=== PATIENT | female | born 1935 | race Caucasian/White ===

== ENCOUNTER 2016-03-17 17:05 | Inpatient (IN) | payer OTHER, MEDICARE ==
[2016-03-17 17:08] VITALS: BP 154/73; PULSE 75; RESP 16; TEMP 98.7; O2SAT 96
[2016-03-17 18:05] LABS: MEAN CORPUSCULAR HGB CONC 29.2 % (32.0-36.0)
--- NOTE | 2016-03-17 18:12 | PD ---
HPI Chief Complaint: Abnormal Results Time Seen by Provider: 17:58 Travel History International Travel<30 days: No Contact w/Intl Traveler<30days: No Traveled to known affect area: No History of Present Illness HPI The patient is a 80-year-old female who presents to the emergency department for abnormal lab results. The patient states she had her yearly physical and had outpatient laboratory evaluation ordered. The patient had lab work performed at [facility]. and was told she had a hemoglobin of 6.1 and to present to the emergency department. The patient denies any shortness of breath , chest pain, exertional shortness of breath, lightheadedness, dizziness, fatigue, or malaise. However, the states the patient has been more tired than normal usually, however, the patient denies increased fatigue or lethargy. The patient denies any rectal bleeding, right red-colored stools, or dark colored stools. The patient denies taking any anticoagulants and denies any history of previous anemia. The patient's primary physician is Dr. Norwood. [facility] Past Medical History Narrative Medical Diabetes, hypertension, hypothyroidism Diabetes: Yes (GLIPIZIDE) ?: Not Past Surgical History Hysterectomy: Yes Social History Tobacco Use: No Allergies-Medications (Allergen,Severity, Reaction): Coded Allergies: No Known Allergies (Unverified , 03/17/16) Reported Meds & Prescriptions Reported Meds & Active Scripts Active Reported Levothyroxine (Levothyroxine Sodium) 100 Mcg Tab 100 Mcg PO DAILY Glipizide 5 Mg Tab 5 Mg PO DAILY Take 30 minutes before a meal Lisinopril 40 Mg Tab 40 Mg PO DAILY Review of Systems Except as stated in HPI: all other systems reviewed are Neg Eyes: No: Blurred Vision HENT: No: Headaches, Lightheadedness Cardiovascular: No: Chest Pain or Discomfort, Tachycardia, Syncope, Dyspnea on exertion Respiratory: No: Shortness of Breath Gastrointestinal: No: Nausea, Vomiting, Abdominal Pain, Hematemesis, Hematochezia, Changes in Bowel Habits Genitourinary: No: Hematuria Musculoskeletal: No: Weakness Neurologic: No: Weakness, Dizziness Physical Exam Narrative GENERAL: Awake, alert, pleasant 80-year-old female who appears her stated age and is in no acute respiratory distress. SKIN: Warm and dry. HEAD: Atraumatic. Normocephalic. EYES: Pupils equal and round. Mild pallor. ENT: No nasal bleeding or discharge. Mucous membranes pink and moist. NECK: Trachea midline. No JVD. CARDIOVASCULAR: Regular rate and rhythm. No murmur appreciated. RESPIRATORY: No accessory muscle use. Clear to auscultation. Breath sounds equal bilaterally. GASTROINTESTINAL: Abdomen soft, non-tender, nondistended. No rebound tenderness. Rectal: The exam was performed in the presence of a female nurse. No gross blood. Guaiac negative. MUSCULOSKELETAL: No obvious deformities. No clubbing. No cyanosis. No edema. NEUROLOGICAL: Awake and alert. No obvious cranial nerve deficits. Motor grossly within normal limits. Normal speech. PSYCHIATRIC: Appropriate mood and affect; insight and judgment normal. Data Data Last Documented VS Vital Signs Date Time Temp Pulse Resp B/P Pulse Ox O2 Delivery O2 Flow Rate FiO2 03/17/16 17:08 98.7 75 16 154/73 96 Room Air Orders Complete Blood Count With Diff (03/17/16 18:03) Comprehensive Metabolic Panel (03/17/16 18:03) Thyroid Stimulating Hormone (03/17/16 18:03) Free Thyroxine (T4) (03/17/16 18:03) Type And Screen (03/17/16 18:03) Iron/Tibc Profile (03/17/16 18:03) Retic Count (03/17/16 18:03) Ldh Serum (03/17/16 18:03) Red Blood Cells (Rbc) (03/17/16 18:52) Blood Product Administration .UPON TRANSFUSION (03/17/16 18:52) Sodium Chlor 0.9% 250 Ml Inj (Ns 250 Ml (03/17/16 19:00) Diphenhydramine Inj (Benadryl Inj) (03/17/16 19:00) Acetaminophen (Tylenol) (03/17/16 19:00) Admit Order (Ed Use Only) (03/17/16 19:41) Labs Laboratory Tests Test 03/17/16 18:23 White Blood Count 7.6 TH/MM3 Red Blood Count 3.64 MIL/MM3 Hemoglobin 6.2 GM/DL Hematocrit 21.3 % Mean Corpuscular Volume 58.6 FL Mean Corpuscular Hemoglobin 17.1 PG Mean Corpuscular Hemoglobin 29.2 % Concent Red Cell Distribution Width 19.4 % Platelet Count 326 TH/MM3 Mean Platelet Volume 9.1 FL Neutrophils (%) (Auto) 68.4 % Lymphocytes (%) (Auto) 22.6 % Monocytes (%) (Auto) 5.8 % Eosinophils (%) (Auto) 0.9 % Basophils (%) (Auto) 2.3 % Neutrophils # (Auto) 5.2 TH/MM3 Lymphocytes # (Auto) 1.7 TH/MM3 Monocytes # (Auto) 0.4 TH/MM3 Eosinophils # (Auto) 0.1 TH/MM3 Basophils # (Auto) 0.2 TH/MM3 CBC Comment AUTO DIFF Differential Comment AUTO DIFF CONFIRMED Platelet Estimate NORMAL Platelet Morphology Comment NORMAL Reticulocyte Count 1.6 % Absolute Reticulocyte Count 59.3 MIL/L Sodium Level 141 MEQ/L Potassium Level 4.0 MEQ/L Chloride Level 110 MEQ/L Carbon Dioxide Level 22.8 MEQ/L Anion Gap 8 MEQ/L Blood Urea Nitrogen 19 MG/DL Creatinine 1.25 MG/DL Estimat Glomerular Filtration 41 ML/MIN Rate Random Glucose 152 MG/DL Calcium Level 8.7 MG/DL Iron Level 6 MCG/DL Total Iron Binding Capacity 503 MCG/DL Percent Iron Saturation 1.2 % Total Bilirubin 0.5 MG/DL Aspartate Amino Transf 8 U/L (AST/SGOT) Alanine Aminotransferase 13 U/L (ALT/SGPT) Alkaline Phosphatase 69 U/L Lactate Dehydrogenase 173 U/L Total Protein 7.5 GM/DL Albumin 3.6 GM/DL Free Thyroxine 0.20 NG/DL Thyroid Stimulating Hormone 78.600 uIU/ML 3rd Gen Blood Type O POSITIVE Antibody Screen NEGATIVE MDM Medical Decision Making Medical Screen Exam Complete: Yes Emergency Medical Condition: Yes Medical Record Reviewed: Yes Interpretation(s) Laboratory Tests Test 03/17/16 18:23 White Blood Count 7.6 TH/MM3 Red Blood Count 3.64 MIL/MM3 Hemoglobin 6.2 GM/DL Hematocrit 21.3 % Mean Corpuscular Volume 58.6 FL Mean Corpuscular Hemoglobin 17.1 PG Mean Corpuscular Hemoglobin 29.2 % Concent Red Cell Distribution Width 19.4 % Platelet Count 326 TH/MM3 Mean Platelet Volume 9.1 FL Neutrophils (%) (Auto) 68.4 % Lymphocytes (%) (Auto) 22.6 % Monocytes (%) (Auto) 5.8 % Eosinophils (%) (Auto) 0.9 % Basophils (%) (Auto) 2.3 % Neutrophils # (Auto) 5.2 TH/MM3 Lymphocytes # (Auto) 1.7 TH/MM3 Monocytes # (Auto) 0.4 TH/MM3 Eosinophils # (Auto) 0.1 TH/MM3 Basophils # (Auto) 0.2 TH/MM3 CBC Comment AUTO DIFF Differential Comment AUTO DIFF CONFIRMED Platelet Estimate NORMAL Platelet Morphology Comment NORMAL Reticulocyte Count 1.6 % Absolute Reticulocyte Count 59.3 MIL/L Sodium Level 141 MEQ/L Potassium Level 4.0 MEQ/L Chloride Level 110 MEQ/L Carbon Dioxide Level 22.8 MEQ/L Anion Gap 8 MEQ/L Blood Urea Nitrogen 19 MG/DL Creatinine 1.25 MG/DL Estimat Glomerular Filtration 41 ML/MIN Rate Random Glucose 152 MG/DL Calcium Level 8.7 MG/DL Iron Level 6 MCG/DL Total Iron Binding Capacity 503 MCG/DL Percent Iron Saturation 1.2 % Total Bilirubin 0.5 MG/DL Aspartate Amino Transf 8 U/L (AST/SGOT) Alanine Aminotransferase 13 U/L (ALT/SGPT) Alkaline Phosphatase 69 U/L Lactate Dehydrogenase 173 U/L Total Protein 7.5 GM/DL Albumin 3.6 GM/DL Free Thyroxine 0.20 NG/DL Thyroid Stimulating Hormone 78.600 uIU/ML 3rd Gen Blood Type O POSITIVE Antibody Screen NEGATIVE Differential Diagnosis Differential diagnoses includes symptomatic anemia, hypothyroidism, iron deficiency anemia, microcytic anemia, GI bleed, normochromic anemia, macrocytic anemia. Narrative Course IV was established, labs are drawn and sent, and the patient was placed on cardiac telemetry monitoring and continuous pulse oximetry monitoring. A rectal exam was performed in the presence of a female nurse. Type and screen and CBC were sent to lab. Free T4, TSH, iron profile, retake, and LDH were sent to lab. Rectal exam was negative for gross blood, was guaiac negative. Lab called with critical values, hemoglobin 6.2 and hematocrit 21.3. The patient has no previous history of anemia and has little to no symptoms, states she is lethargic, however, patient denies. No obvious loss, rectal exam was negative and guaiac exam was negative. Anemia may be chronic and worsening over time. However, anemia is new with low at 6.2, therefore, patient will be admitted for transfusion of 2 units and further evaluation for etiology of anemia. H[facility]Prompt Point of Care Internal Pos. & Neg. Controls: Passed Fecal Specimen Occult Blood: Negative Physician Communication Physician Communication The [facility] [employer] I discussed the patient with Dr. Selby who agrees with admission. Diagnosis Primary Impression: Microcytic anemia Additional Impressions: Iron deficiency Hypothyroidism Qualified Code: E03.9 - Hypothyroidism, unspecified type Admitting Information Admitting Physician Requests: Admit Condition: Stable Gilmer Garcia MD Mar 17, 2016 18:12
[2016-03-17] MEDS ORDERED: LISI40TA PO (18:22)
[2016-03-17] MEDS ORDERED: GLIP5TAB8 PO (18:23)
[2016-03-17] MEDS ORDERED: LEVO100T5 PO (18:24)
[2016-03-17 18:36] LABS: AUTOMATED NEUTROPHIL # 5.2 TH/MM3 (1.8-7.7); BASOPHIL # 0.2 TH/MM3 (0-0.2); BASOPHIL % 2.3 % (0.0-2.0); EOSINOPHIL # 0.1 TH/MM3 (0-0.4); EOSINOPHIL % 0.9 % (0.0-4.0); HEMATOCRIT 21.3 % (35.0-46.0); LYMPH % 22.6 % (9.0-44.0); LYMPHOCYTE # 1.7 TH/MM3 (1.0-4.8); MEAN CELL VOLUME 58.6 FL (80.0-100.0); MEAN CORPUSCULAR HEMOGLOBIN 17.1 PG (27.0-34.0); MONO % 5.8 % (0.0-8.0); NEUT % 68.4 % (16.0-70.0); PLATELET COUNT 326 TH/MM3 (150-450); RED BLOOD COUNT 3.64 MIL/MM3 (4.00-5.30); RED CELL DISTRIBUTION WIDTH 19.4 % (11.6-17.2); RETIC % 1.6 % (0.4-3.0); WHITE BLOOD COUNT 7.6 TH/MM3 (4.0-11.0)
[2016-03-17 18:44] LABS: HEMO FLAGS AUTO DIFF; REVIEW FLAG AUTO DIFF
[2016-03-17 18:57] LABS: ANION GAP 8 MEQ/L (5-15); AST (GOT) 8 U/L (15-37); BICARBONATE 22.8 MEQ/L (21.0-32.0); BLOOD UREA NITROGEN 19 MG/DL (7-18); CHLORIDE 110 MEQ/L (98-107); GLOMERULAR FILTRATION RATE 41 ML/MIN (>89); SODIUM (NA) 141 MEQ/L (136-145)
[2016-03-17] MEDS ORDERED: diphenhydrAMINE HCL 50 MG/ML VIAL IV PRN (19:00)
[2016-03-17] MEDS ORDERED: SODIUM CHLOR 0.9% 250 ML INJ 250 ML IV ONE (19:00)
[2016-03-17 19:06] LABS: ALKALINE PHOSPHATASE 69 U/L (45-117); ALT (GPT) 13 U/L (10-53); LDH SERUM 173 U/L (84-246); TOTAL BILIRUBIN ADULT 0.5 MG/DL (0.2-1.0); TRANSFERRIN IRON PROFILE 359 MG/DL (200-360)
[2016-03-17 19:13] LABS: PLATELET ESTIMATE SMEAR NORMAL (NORMAL); PLATELET MORPHOLOGY NORMAL (NORMAL); SCAN/DIFF AUTO DIFF CONFIRMED
[2016-03-17] MEDS ORDERED: NALOXONE HCL 0.4 MG/ML AMP IV PRN (19:45)
[2016-03-17] MEDS ORDERED: SODIUM CHLORIDE 0.9% FLUSH 5 ML FLUSH FLUSH PRN (19:45)
[2016-03-17] MEDS: ACETAMINOPHEN 325 MG TAB PO PRN (19:49)
[2016-03-17 21:08] LABS: MEAN CORPUSCULAR HGB CONC 29.9 % (32.0-36.0)
[2016-03-17 21:21] VITALS: BP 148/71; PULSE 68; RESP 20; TEMP 98.1; O2SAT 95
[2016-03-17] MEDS ORDERED: GLUCAGON 1 MG/ML VIAL OTHER PRN (22:15)
[2016-03-17] MEDS ORDERED: DEXTROSE 50% IN WATER 50 ML VIAL(D50) IV PUSH PRN (22:15)
--- NOTE | 2016-03-17 22:30 | HHI.HP ---
cc: Abiola Norwood MD [facility] Service [facility] Primary Care Physician Abiola Norwood MD Admission Diagnosis Iron deficiency anemia, hypothyroidism Diagnoses: (1) Iron deficiency (2) Microcytic anemia (3) Hypothyroidism (4) Encephalopathy (5) Acute renal insufficiency Chief Complaint: Low hemoglobin on routine blood work Travel History International Travel<30 Days: No Contact w/Intl Traveler <30 Da: No Traveled to Known Affected Are: No History of Present Illness Mrs. Day is a 80 year-old female with a past medical history type 2 diabetes mellitus, hypothyroidism, and hypertension who had outpatient labwork for a yearly physical which revealed a hemoglobin of 6.1 resulting in her PCP referring her to the ER for evaluation. Rectal exam in ER negative for occult blood. In ER blood work revealed hemoglobin 6.2 and hematocrit 21.3. BP mildly elevated at 154/73, otherwise VSS. TSH elevated at 78.6. Free T4 low at 0.20. Acute renal insufficiency noted with BUN - 19, Creatinine - 1.25, and eGFR 41. Iron deficiency noted with Iron saturation 1.2%, TIBC elevated at 503, and iron level low at 6. The patient is seen in the CDU. She states that she is here because "I didn't take my medicine" and states it medicine for her thyroid that she's not been taking. She is educated about her low blood count and need for blood transfusion and then shortly thereafter again states that she is here because she didn't take her thyroid medicine. Her medical history is recalled with some accuracy. She states that she went out of town about 3 months ago and stopped her levothyroxine. She reports that she takes ibuprofen once a day for pain. She denies any history of taking blood thinners. She denies history of COPD, asthma, heart problems such as CHF, heart rhythm problems, DVT, PE, CVA, seizure, liver or kidney dysfunction, or cancer. She denies any bright red blood in stool, tarry stool, shortness of breath, dizziness, hematuria, hemoptysis. 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 She had a screening colonoscopy performed by Dr. Schaefer in 2002. . . Review of Systems Constitutional: DENIES: Fever, Dizziness Respiratory: DENIES: Hemoptysis, Shortness of breath Cardiovascular: DENIES: Dyspnea on Exertion, Lower Extremity Edema Gastrointestinal: DENIES: Black stools, Bloody stools Genitourinary: DENIES: Hematuria, Dysuria Other All other systems are reviewed and are otherwise negative Past Family Social History Past Medical History Type 2 diabetes mellitus Hypertension Hypothyroidism Rectal polyps x 3 1 snared, others fulgurated - per 10/10/2002 screening colonoscopy report (hyperplastic polyp per path report) . Past Surgical History Hysterectomy 08/01/04 FNA left thyroid nodule with path c/w nodular goiter per path report Colonoscopy with polypectomy x 3 1 snared, others fulgurated 10/10/02 . Reported Medications Reported Meds & Active Scripts Active Reported Levothyroxine (Levothyroxine Sodium) 100 Mcg Tab 100 Mcg PO DAILY - not taking x 3 months Glipizide 5 Mg Tab 5 Mg PO DAILY Take 30 minutes before a meal Lisinopril 40 Mg Tab 40 Mg PO DAILY . Allergies: Coded Allergies: No Known Allergies (Unverified , 03/17/16) Active Ordered Medications Current Medications Sodium Chloride (NS 250 ml Inj) 250 ml @ 15 mls/hr ONCE ONCE IV Last administered on 03/17/16 19:49; Start 03/17/16 at 19:00; Stop 03/18/16 at 11:39 Diphenhydramine HCl (Benadryl Inj) 25 mg UNSCH X1 PRN IV ITCHING Last administered on 03/17/16 19:49; Start 03/17/16 at 19:00; Stop 03/20/16 at 18:59 Acetaminophen (Tylenol) 650 mg UNSCH X1 PRN PO FEVER Last administered on 19:49; Start 03/17/16 at 19:00; Stop 03/20/16 at 18:59 IV Flush (NS Flush) 2 ml UNSCH PRN FLUSH FLUSH AFTER USING IV ACCESS; Start 03/17/16 at 19:45 IV Flush (NS Flush) 2 ml BID FLUSH ; Start 03/17/16 at 21:00 Naloxone HCl (Narcan Inj) 0.4 mg UNSCH PRN IV SEE LABEL COMMENTS; Start at 19:45 Levothyroxine Sodium (Synthroid) 100 mcg DAILY@06 PO ; Start 03/18/16 at 06:00 Lisinopril 40 mg 40 mg DAILY PO ; Start 03/18/16 at 09:00 Dextrose/Sodium Chloride (D5W-1/2 NS 1000 ml Inj) 1,000 ml @ 84 mls/hr [id number] IV ; Start 03/17/16 at 23:00 Dextrose (D50w (Vial) Inj) 25 ml UNSCH PRN IV PUSH HYPOGLYCEMIA-SEE COMMENTS; Start 03/17/16 at 22:15 Glucagon (Glucagon Inj) 1 mg UNSCH PRN OTHER HYPOGLYCEMIA-SEE COMMENTS; Start 03/17/16 at 22:15 . Family History Denies any significant family medical history - patient's confusion limits reliability of this information . Social History Alcohol: denies Tobacco: denies . Physical Exam Vital Signs Vital Signs Date Time Temp Pulse Resp B/P Pulse Ox O2 Delivery O2 Flow Rate FiO2 03/17/16 21:21 98.1 68 20 148/71 95 03/17/16 17:08 98.7 75 16 154/73 96 Room Air Physical Exam GENERAL: This is a frail appearing female patient who appears slightly jaundiced with dark circles underneath her eyes and who is in no apparent distress. She is confused to situation. SKIN: No rashes, ecchymoses or lesions. Cool and dry. HEAD: Atraumatic. Normocephalic. EYES: No scleral icterus. No injection or drainage. ENT: Nose without bleeding, purulent drainage. NECK: Trachea midline. No JVD or lymphadenopathy. CARDIOVASCULAR: Regular rate and rhythm without murmurs, gallops, or rubs. RESPIRATORY: Clear to auscultation. Breath sounds equal bilaterally. No wheezes , rales, or rhonchi. GASTROINTESTINAL: Abdomen soft, non-tender, nondistended. No guarding. MUSCULOSKELETAL: Extremities without clubbing, cyanosis, or edema. No calf tenderness. NEUROLOGICAL: Awake and alert. Normal speech. She is confused to situation. . Laboratory Laboratory Tests Test 03/17/16 03/17/16 18:23 19:33 White Blood Count 7.6 Red Blood Count 3.64 Hemoglobin 6.2 Hematocrit 21.3 Mean Corpuscular Volume 58.6 Mean Corpuscular Hemoglobin 17.1 Mean Corpuscular Hemoglobin 29.2 Concent Red Cell Distribution Width 19.4 Platelet Count 326 Mean Platelet Volume 9.1 Neutrophils (%) (Auto) 68.4 Lymphocytes (%) (Auto) 22.6 Monocytes (%) (Auto) 5.8 Eosinophils (%) (Auto) 0.9 Basophils (%) (Auto) 2.3 Neutrophils # (Auto) 5.2 Lymphocytes # (Auto) 1.7 Monocytes # (Auto) 0.4 Eosinophils # (Auto) 0.1 Basophils # (Auto) 0.2 CBC Comment AUTO DIFF Differential Comment AUTO DIFF CONFIRMED Platelet Estimate NORMAL Platelet Morphology Comment NORMAL Reticulocyte Count 1.6 Absolute Reticulocyte Count 59.3 Sodium Level 141 Potassium Level 4.0 Chloride Level 110 Carbon Dioxide Level 22.8 Anion Gap 8 Blood Urea Nitrogen 19 Creatinine 1.25 Estimat Glomerular Filtration 41 Rate Random Glucose 152 Calcium Level 8.7 Iron Level 6 Total Iron Binding Capacity 503 Percent Iron Saturation 1.2 Total Bilirubin 0.5 Aspartate Amino Transf 8 (AST/SGOT) Alanine Aminotransferase 13 (ALT/SGPT) Alkaline Phosphatase 69 Lactate Dehydrogenase 173 Total Protein 7.5 Albumin 3.6 Free Thyroxine 0.20 Thyroid Stimulating Hormone 78.600 3rd Gen Blood Type O POSITIVE Antibody Screen NEGATIVE Crossmatch Leukocyte-Reduced Red Blood Cells Blood Bank Comment Result Diagram: 03/17/16182203/17/161822 Assessment and Plan Problem List: (1) Iron deficiency ICD Code: E61.1 Status: Acute (2) Microcytic anemia ICD Code: D50.9 Status: Acute (3) Hypothyroidism ICD Code: E03.9 Status: Acute (4) Encephalopathy ICD Code: G93.40 Status: Acute (5) Acute renal insufficiency ICD Code: N28.9 Status: Acute Assessment and Plan Iron Deficiency Microcytic Anemia History of rectal polyps - Rectal exam: stool negative for occult blood in ER - Iron low at 6, Iron saturation low at 1.2%, and TIBC elevated at 503 - 2 units of PRBCs given in ER - recheck CBC in a.m. and transfuse as necessary - continuous cardiac telemetry to monitor for potential cardiac arrhythmias - vital signs q4h - consult GI - patient had [place] colon[place] [address] Yu per EMR Acute renal insufficiency - BUN - 19, Creatinine - 1.25, and eGFR 41 - Avoid nephrotoxins - recheck BMP in a.m. and follow trends in renal indices Hypothyroidism - continue home Synthroid - repeat thyroid labs in 2 weeks as an outpatient Encephalopathy - dementia vs severe anemia vs hypothyroid-related - monitor for improvement post-transfusion - will discuss baseline mental status with patient's when he arrives DVT prophylaxis - SCDs - Chemoprophylaxis contraindicated by severe anemia Written by Julianne Cuevas, acting as scribe for Dr. Selby on 03/17/16 at 21:40. The documentation accurately reflects the work performed [id number] by me on at 2140 Discussed Condition With Patient and ER physician Problem Qualifiers (1) Hypothyroidism: Qualified Code: E03.9 - Hypothyroidism, unspecified type Julianne Cuevas Mar 17, 2016 22:30 Toni Selby MD Mar 20, 2016 08:17
[2016-03-17] MEDS: SODIUM CHLORIDE 0.9% FLUSH 5 ML FLUSH FLUSH SCH (22:50)
[2016-03-17 23:00] VITALS: BP 148/71; PULSE 68; RESP 20; TEMP 98.1; O2SAT 95
[2016-03-17 23:20] VITALS: BP 141/69; PULSE 63; RESP 20; TEMP 98.5; O2SAT 100
[2016-03-18] VITALS (12 sets, daily range): BP systolic 129–166; BP diastolic 69–82; PULSE 62–77; RESP 16–20; TEMP 97.8–99; O2SAT 93–98
[2016-03-18] MEDS: ACETAMINOPHEN 325 MG TAB PO PRN (02:32)
[2016-03-18] MEDS: DEXT 5%-NACL 0.45% 1000 ML INJ 1,000 ML IV SCH ×3 (05:07→22:50)
[2016-03-18] MEDS: LEVOTHYROXINE SODIUM 100 MCG TAB PO SCH (05:09)
[2016-03-18 08:07] LABS: AUTOMATED NEUTROPHIL # 4.9 TH/MM3 (1.8-7.7); BASOPHIL # 0.2 TH/MM3 (0-0.2); BASOPHIL % 3.1 % (0.0-2.0); EOSINOPHIL # 0.1 TH/MM3 (0-0.4); EOSINOPHIL % 1.2 % (0.0-4.0); HEMATOCRIT 25.7 % (35.0-46.0); LYMPH % 20.2 % (9.0-44.0); LYMPHOCYTE # 1.5 TH/MM3 (1.0-4.8); MEAN CELL VOLUME 61.5 FL (80.0-100.0); MEAN CORPUSCULAR HEMOGLOBIN 18.4 PG (27.0-34.0); MONO % 6.5 % (0.0-8.0); PLATELET COUNT 287 TH/MM3 (150-450); RED BLOOD COUNT 4.18 MIL/MM3 (4.00-5.30); RED CELL DISTRIBUTION WIDTH 21.3 % (11.6-17.2); WHITE BLOOD COUNT 7.2 TH/MM3 (4.0-11.0)
[2016-03-18 08:14] LABS: HEMO FLAGS AUTO DIFF
[2016-03-18] MEDS: SODIUM CHLORIDE 0.9% FLUSH 5 ML FLUSH FLUSH SCH ×2 (08:21→22:49)
[2016-03-18] MEDS: LISINOPRIL 20 MG TAB PO SCH (08:22)
[2016-03-18 08:32] LABS: BICARBONATE 22.6 MEQ/L (21.0-32.0); POTASSIUM 3.9 MEQ/L (3.5-5.1)
[2016-03-18] MEDS ORDERED: cloNIDine HCL 0.1 MG TAB PO PRN (09:00)
[2016-03-18] MEDS ORDERED: hydrALAZINE HCL 20 MG/ML VIAL IV PRN (09:00)
[2016-03-18] MEDS: PANTOPRAZOLE SOD 40 MG DELAYED RELEASE TAB PO SCH (09:37)
[2016-03-18 09:44] LABS: KERATOCYTES OCC (NORMAL); OVALOCYTES 1+ (NORMAL); PLATELET ESTIMATE SMEAR NORMAL (NORMAL); PLATELET MORPHOLOGY NORMAL (NORMAL); SCAN/DIFF AUTO DIFF CONFIRMED
--- NOTE | 2016-03-18 09:46 | PD.CONS ---
HPI History of Present Illness This is a 80 year old female patient who was referred to the ER after outpatient labs revealed that she had anemia. She reports that she has been having an issue with anemia. She has not seen any blood loss. She denies any nausea, vomiting, heartburn, reflux, decreased appetite, weight loss, bowel changes, constipation, diarrhea, melena, or hematochezia. She denies any fatigue or generalized weakness. No vaginal bleeding. She came to the ER and was found to have anemia with H/H of 6.2/21.3. Iron level 6, TIBC 503, Iron saturation 1.2%. She was given 2 units of PRBC and her H/H is now 7.7/25.7. She had an EGD (10/18/2007) revealed nodule at the gastroesophageal junction, esophagitis, hiatal hernia, gastritis, pathology revealed GE mucosa with severe reflux esophagitis, no Muller's esophagus present. Colonoscopy (09/06/2007) revealed diverticula, scattered, small internal hemorrhoids. Follow-up 5 years for colonoscopy. Prior to this, she had hyperplastic polyps in the rectum. She denies any family hx of gastric, esophageal, or colorectal cancer. She denies the use of any blood thinners or NSAIDs. (Gisella Willis) PFSH Past Medical History Type 2 diabetes mellitus Hypertension Hypothyroidism Hyperplastic rectal polyps in 2002 Chronic kidney disease GERD Hyperlipidemia Osteoporosis Past Surgical History Hysterectomy FNA left thyroid nodule EGD Colonoscopy Radical mastectomy left breast (Gisella Willis) Coded Allergies: No Known Allergies (Unverified , 03/17/16) Medications Allergies Coded Allergies Type Severity Reaction Last Updated Verified No Known Allergies 03/17/16 No Active Scripts Medications Dose Route/Sig Days Date Category Dose Instructions Levothyroxine (Levothyroxine Sodium) 100 Mcg Tab 100 Mcg PO DAILY 03/17/16 Reported Glipizide 5 Mg Tab 5 Mg PO DAILY 03/17/16 Reported Take 30 minutes before a meal Lisinopril 40 Mg Tab 40 Mg PO DAILY 03/17/16 Reported Family History Family history of diabetes, pancreatic cancer, autoimmune disease Social History No tobacco or alcohol use (Gisella Willis) Review of Systems Constitutional: DENIES: Fatigue, Weight loss, Change in appetite Respiratory: DENIES: Cough Cardiovascular: DENIES: Chest pain Gastrointestinal: DENIES: Abdominal pain, Black stools, Bloody stools, Constipation, Diarrhea, Nausea, Vomiting, Anorexia, Swelling of Abdomen, Heartburn, Hematemesis Musculoskeletal: DENIES: Joint pain Integumentary: DENIES: Rash Hematologic/lymphatic: DENIES: Bruising Immunologic/allergic: DENIES: Eczema Neurologic: DENIES: Headache Psychiatric: DENIES: Confusion (Gisella Willis STEVEN) GI Exam Vitals I&O Vital Signs Date Time Temp Pulse Resp B/P Pulse Ox O2 Delivery O2 Flow Rate FiO2 03/18/16 07:50 97.9 70 16 166/79 95 03/18/16 05:03 98.6 74 20 148/74 93 03/18/16 04:38 98.2 76 20 129/82 96 03/18/16 03:01 99.0 71 20 137/69 93 03/18/16 02:00 98.3 77 20 137/69 93 03/18/16 00:15 97.9 76 20 144/71 98 03/18/16 00:00 67 03/17/16 23:20 98.5 63 20 141/69 100 03/17/16 23:00 98.1 68 20 148/71 95 03/17/16 21:21 98.1 68 20 148/71 95 03/17/16 17:08 98.7 75 16 154/73 96 Room Air I/O 03/17/16 03/17/16 03/17/16 03/18/16 03/18/16 03/18/16 07:00 15:00 23:00 07:00 15:00 23:00 Intake Total 700 ml Balance 700 ml Intake IV Total 100 ml Packed Cells 600 ml Laboratory Test 03/17/16 03/17/16 03/18/16 18:23 19:33 07:43 White Blood Count 7.6 TH/MM3 7.2 TH/MM3 Red Blood Count 3.64 MIL/MM3 4.18 MIL/MM3 Hemoglobin 6.2 GM/DL 7.7 GM/DL Hematocrit 21.3 % 25.7 % Mean Corpuscular Volume 58.6 FL 61.5 FL Mean Corpuscular Hemoglobin 17.1 PG 18.4 PG Mean Corpuscular Hemoglobin 29.2 % 29.9 % Concent Red Cell Distribution Width 19.4 % 21.3 % Platelet Count 326 TH/MM3 287 TH/MM3 Mean Platelet Volume 9.1 FL 9.1 FL Neutrophils (%) (Auto) 68.4 % 69.0 % Lymphocytes (%) (Auto) 22.6 % 20.2 % Monocytes (%) (Auto) 5.8 % 6.5 % Eosinophils (%) (Auto) 0.9 % 1.2 % Basophils (%) (Auto) 2.3 % 3.1 % Neutrophils # (Auto) 5.2 TH/MM3 4.9 TH/MM3 Lymphocytes # (Auto) 1.7 TH/MM3 1.5 TH/MM3 Monocytes # (Auto) 0.4 TH/MM3 0.5 TH/MM3 Eosinophils # (Auto) 0.1 TH/MM3 0.1 TH/MM3 Basophils # (Auto) 0.2 TH/MM3 0.2 TH/MM3 CBC Comment AUTO DIFF AUTO DIFF Differential Comment AUTO DIFF CONFIRMED Platelet Estimate NORMAL Platelet Morphology Comment NORMAL Reticulocyte Count 1.6 % Absolute Reticulocyte Count 59.3 MIL/L Sodium Level 141 MEQ/L 141 MEQ/L Potassium Level 4.0 MEQ/L 3.9 MEQ/L Chloride Level 110 MEQ/L 110 MEQ/L Carbon Dioxide Level 22.8 MEQ/L 22.6 MEQ/L Anion Gap 8 MEQ/L 8 MEQ/L Blood Urea Nitrogen 19 MG/DL 26 MG/DL Creatinine 1.25 MG/DL 1.22 MG/DL Estimat Glomerular Filtration 41 ML/MIN 43 ML/MIN Rate Random Glucose 152 MG/DL 149 MG/DL Calcium Level 8.7 MG/DL 8.1 MG/DL Iron Level 6 MCG/DL Total Iron Binding Capacity 503 MCG/DL Percent Iron Saturation 1.2 % Total Bilirubin 0.5 MG/DL Aspartate Amino Transf 8 U/L (AST/SGOT) Alanine Aminotransferase 13 U/L (ALT/SGPT) Alkaline Phosphatase 69 U/L Lactate Dehydrogenase 173 U/L Total Protein 7.5 GM/DL Albumin 3.6 GM/DL Free Thyroxine 0.20 NG/DL Thyroid Stimulating Hormone 78.600 uIU/ML 3rd Gen Blood Type O POSITIVE Antibody Screen NEGATIVE Crossmatch Leukocyte-Reduced Red Blood Cells Blood Bank Comment Physical Examination HEENT: Normocephalic; atraumatic; no jaundice. CHEST: CTA CARDIAC: RRR ABDOMEN: Soft, nondistended, nontender; no hepatosplenomegaly; bowel sounds are present in all four quadrants. EXTREMITIES: No clubbing, cyanosis, or edema. SKIN: Normal; no rash; no jaundice. POPULATION GENETICIST: No focal deficits; alert and oriented times three. (Gisella Willis) Assessment and Plan Plan ASSESSMENT: - EM. HH on admission 6.2/21.3. Iron level 6, TIBC 503, Iron saturation 1.2% . S/P 2 units of PRBC, H/H is now 7.7/25.7. No GI symptoms. EGD (10/18/2007) revealed nodule at the gastroesophageal junction, esophagitis, hiatal hernia, gastritis, pathology revealed GE mucosa with severe reflux esophagitis, no Muller's esophagus present. Colonoscopy (09/06/2007) revealed diverticula, scattered, small internal hemorrhoids. Follow-up 5 years for colonoscopy. Prior to this, she had hyperplastic polyps in the rectum. No family hx of gastric, esophageal, or colorectal cancer. She denies the use of any blood thinners or NSAIDs. Plan for egd/colonoscopy in am. - VANESSA. Creat 1.22. - Hypothryroidism with elevated TSH, low free T4. TSH 78.6. PLAN: - Plan for egd/colonoscopy in am - Obtain consents - Clear liquids - NPO after MN - Golytely prep - CBC, BMP in am - PPI - Supportive care - Further recommendations to follow based on results of above - Pt seen and examined by Dr. Meehan and myself and this note is written on his behalf (Gisella Willis) Physician Comments Patient seen and examined Agree with above Continue with current supportive care Monitor labs Plan for an EGD and a colonoscopy tomorrow (Rudy Meehan MD) Gisella Willis Mar 18, 2016 09:46 Rudy Meehan MD Mar 18, 2016 20:32
--- NOTE | 2016-03-18 10:04 | RADRPT ---
EXAM DATE/TIME: 03/18/2016 09:29 [facility] COMPARISON: No previous studies available for comparison. INDICATIONS : Altered mental status. RADIATION DOSE: 40.97 CTDIvol (mGy) MEDICAL HISTORY : Diabetes mellitus type 2. Hypothyroidism. SURGICAL HISTORY : Hysterectomy. ENCOUNTER: Initial ACUITY: 1 day PAIN SCALE: 0/10 LOCATION: cranial TECHNIQUE: Multiple contiguous axial images were obtained of the head. Using automated exposure control and adj ustment of the mA and/or kV according to patient size, radiation dose was kept as low as reasonably a chievable to obtain optimal diagnostic quality images. FINDINGS: CEREBRUM: The ventricles are normal for age. No evidence of midline shift, mass lesion, hemorrhage or acute in farction. No extra-axial fluid collections are seen. POSTERIOR FOSSA: The cerebellum and brainstem are intact. The 4th ventricle is midline. The cerebellopontine angle i s unremarkable. EXTRACRANIAL: The visualized portion of the orbits is intact. SKULL: The calvaria is intact. No evidence of skull fracture. CONCLUSION: Normal examination for a patient of this age. Loraine Blunt MD on March 18, 2016 at 9:59 Board Certified Radiologist. This report was verified electronically.
[2016-03-18 11:30] LABS: FERRITIN 11 NG/ML (8-252)
[2016-03-18 12:01] LABS: RAPID PLASMA REAGIN SCREEN NON-REACTIVE (NON-REACTVE)
--- NOTE | 2016-03-18 12:26 | HHI.PR ---
Subjective Remarks Follow up for anemia and questionable encephalopathy. The patient is awake, alert, oriented to person, place, and Mar 2016. When asked why she is in the hospital, she states "I came to get some blood." She is s/p 2u pRBCs. The patient denies any recent nausea/vomiting, abdominal pain, melena/hematochezia, weight loss, or poor appetite. She denies feeling confused or drowsy yesterday. Denies any family hx of dementia. She denies any other medical complaints at this time. Objective Vitals Vital Signs Date Time Temp Pulse Resp B/P Pulse Ox O2 Delivery O2 Flow Rate FiO2 03/18/16 07:50 97.9 70 16 166/79 95 03/18/16 05:03 98.6 74 20 148/74 93 03/18/16 04:38 98.2 76 20 129/82 96 03/18/16 03:01 99.0 71 20 137/69 93 03/18/16 02:00 98.3 77 20 137/69 93 03/18/16 00:15 97.9 76 20 144/71 98 03/18/16 00:00 67 03/17/16 23:20 98.5 63 20 141/69 100 03/17/16 23:00 98.1 68 20 148/71 95 03/17/16 21:21 98.1 68 20 148/71 95 03/17/16 17:08 98.7 75 16 154/73 96 Room Air I/O 03/17/16 03/17/16 03/17/16 03/18/16 03/18/16 03/18/16 07:00 15:00 23:00 07:00 15:00 23:00 Intake Total 700 ml Balance 700 ml Intake IV Total 100 ml Packed Cells 600 ml Result Diagram: 03/18/16 0743 03/18/16 0743 Imaging Last Impressions Head CT 03/18/16 0000 Signed Impressions: Service Date/Time: Friday, March 18, 2016 09:29 - CONCLUSION: Normal examination for a patient of this age. Loraine Blunt MD Objective Remarks GENERAL: Well-nourished, well-developed elderly female patient in NAD. Sitting upright on side of bed, awake, alert. SKIN: Warm and dry. No rash. HEAD: Normocephalic. Atraumatic. EYES: Pupils equal and round. No scleral icterus. No injection or drainage. ENT: No nasal bleeding or discharge. Mucous membranes pink and moist. NECK: Supple. Trachea midline. CARDIOVASCULAR: Regular rate and rhythm. S1, S2 noted. No murmur appreciated. RESPIRATORY: No accessory muscle use. Clear to auscultation. Breath sounds equal bilaterally. GASTROINTESTINAL: Abdomen soft, non-tender, nondistended. Normoactive bowel sounds x4. MUSCULOSKELETAL: No obvious deformities. Extremities without clubbing, cyanosis , or edema. NEUROLOGICAL: Awake and alert, oriented to person/place/month/year. No obvious cranial nerve deficits. Motor grossly within normal limits. 5/5 muscle strength in bilateral upper and lower extremities. Normal speech. PSYCHIATRIC: Appropriate mood and affect; insight and judgment normal. Medications and IVs Current Medications Medications (Trade) Dose Ordered Sig/Evy Route Start Time Stop Time Status Last Admin (NS Flush) 2 ml UNSCH PRN FLUSH 03/17/16 19:45 (NS Flush) 2 ml BID FLUSH 03/17/16 21:00 03/17/16 22:50 (Narcan Inj) 0.4 mg UNSCH PRN IV 03/17/16 19:45 (Synthroid) 100 mcg DAILY@06 PO 03/18/16 06:00 03/18/16 05:09 Lisinopril 40 mg 40 mg DAILY PO 03/18/16 09:00 03/18/16 08:22 (D5W-1/2 NS 1000 ml Inj) 1,000 ml @ 84 mls/hr [id number] IV 03/17/16 23:00 03/18/16 05:07 (D50w (Vial) Inj) 25 ml UNSCH PRN IV PUSH 03/17/16 22:15 (Glucagon Inj) 1 mg UNSCH PRN OTHER 03/17/16 22:15 (Apresoline Inj) 10 mg Q6H PRN IV 03/18/16 09:00 (Catapres) 0.1 mg Q6H PRN PO 03/18/16 09:00 (Protonix) 40 mg DAILY PO 03/18/16 09:00 03/18/16 09:37 (Colyte Liq) 4,000 ml ONCE ONCE PO 03/18/16 16:00 03/18/16 16:01 Urinary Catheter: No Vascular Central Line Catheter: No A/P Problem List: (1) Iron deficiency ICD Code: E61.1 Status: Acute (2) Microcytic anemia ICD Code: D50.9 Status: Acute (3) Hypothyroidism ICD Code: E03.9 Status: Acute (4) Encephalopathy ICD Code: G93.40 Status: Acute (5) Acute renal insufficiency ICD Code: N28.9 Status: Acute Assessment and Plan 80 year-old female with hx type 2 diabetes mellitus, hypothyroidism, and HTN who had outpatient labwork for a yearly physical which revealed a hemoglobin of 6.1 resulting in her PCP referring her to the ER for evaluation. Microcytic Iron Deficiency Anemia: hx of rectal polyps on colonoscopy 2002. FOBT negative in ER. Hgb 6.2 upon arrival. S/p 2u pRBCs overnight. Now Hgb 7.7. Stool Hemoccult ordered. Started on Protonix. Continue to monitor CBC, transfuse as needed. Consulted GI. Plan for EGD/colonoscopy tomorrow am. Acute Renal Insufficiency: Cr 1.25, BUN 19, GFR 41. No previous labs to compare. Continue on IVF. Avoid nephrotoxins. Repeat BMP in the am. Severe Hypothyroidism: TSH 78, Free T4 0.20. Restarted patient's Synthroid. Recommend repeat thyroid labs in 2 weeks as an outpatient. Acute Encephalopathy: dementia vs severe anemia vs hypothyroid-related. Dementia work up initiated. Head CT images reviewed by me, unremarkable. Vit B12 , RPR, ammonia, all wnl. Patient appears to have improved after blood transfusion and restarting levothyroxine. Diabetes Mellitus: held patient's glipizide. Monitor Accu-checks, cover with SSI. Hypoglycemia protocol. Hypertension: chronic, continue patient's lisinopril. Monitor BP, adjust antihypertensives as needed. DVT prophylaxis- SCDs. Chemoprophylaxis contraindicated by severe anemia Written by Nesha Denney, acting as scribe for Dr. Frey on 03/18/16 at 09: 40. The documentation accurately reflects the work performed [id number] by me on at [id number] Problem Qualifiers (1) Hypothyroidism: Qualified Code: E03.9 - Hypothyroidism, unspecified type Nesha Denney PA-C Mar 18, 2016 12:26 Juventino Frey MD Mar 18, 2016 14:20
[2016-03-18] MEDS: INSULIN ASPART SUPPLEMENTAL SCALE SQ SCH ×3 (12:47→22:49)
[2016-03-18] MEDS ORDERED: PEG (High)/E-LYTE SOLN 4000 ML BTL PO ONE (16:00)
[2016-03-19] VITALS (9 sets, daily range): BP systolic 117–165; BP diastolic 60–82; PULSE 62–78; RESP 18–20; TEMP 97.6–98.9; O2SAT 92–98
[2016-03-19] MEDS: LEVOTHYROXINE SODIUM 100 MCG TAB PO SCH (06:07)
[2016-03-19 06:28] LABS: AUTOMATED NEUTROPHIL # 3.2 TH/MM3 (1.8-7.7); BASOPHIL # 0.1 TH/MM3 (0-0.2); BASOPHIL % 2.6 % (0.0-2.0); EOSINOPHIL # 0.2 TH/MM3 (0-0.4); EOSINOPHIL % 2.9 % (0.0-4.0); HEMATOCRIT 23.5 % (35.0-46.0); LYMPH % 26.3 % (9.0-44.0); LYMPHOCYTE # 1.4 TH/MM3 (1.0-4.8); MEAN CELL VOLUME 61.2 FL (80.0-100.0); MEAN CORPUSCULAR HEMOGLOBIN 19.1 PG (27.0-34.0); MEAN CORPUSCULAR HGB CONC 31.1 % (32.0-36.0); MONO % 7.6 % (0.0-8.0); NEUT % 60.6 % (16.0-70.0); PLATELET COUNT 255 TH/MM3 (150-450); RED BLOOD COUNT 3.83 MIL/MM3 (4.00-5.30); RED CELL DISTRIBUTION WIDTH 21.4 % (11.6-17.2); WHITE BLOOD COUNT 5.3 TH/MM3 (4.0-11.0)
[2016-03-19 06:51] LABS: BICARBONATE 22.1 MEQ/L (21.0-32.0); MAGNESIUM 1.8 MG/DL (1.5-2.5); POTASSIUM 3.4 MEQ/L (3.5-5.1)
[2016-03-19] MEDS: INSULIN ASPART SUPPLEMENTAL SCALE SQ SCH ×4 (07:00→21:00)
[2016-03-19 07:05] LABS: HEMO FLAGS AUTO DIFF
[2016-03-19] MEDS ORDERED: POTASSIUM CHLORIDE 20 MEQ CONTROLLED RELEASE TAB PO ONE (07:30)
[2016-03-19] MEDS ORDERED: SODIUM CHLOR 0.9% 250 ML INJ 250 ML IV ONE (08:45)
--- NOTE | 2016-03-19 08:45 | HHI.PR ---
Subjective Remarks Follow-up for anemia. Patient denies any weakness, abdominal pain, recent weight loss. Appetite is normal. She believes she had an outpatient CAT scans done by her PCP, she believes he did this for anemia workup. She did not completely finish bowel prep, stools have not been clear yet, will inform GI. Going to GI lab today. Objective Vitals Vital Signs Date Time Temp Pulse Resp B/P Pulse Ox O2 Delivery O2 Flow Rate FiO2 03/19/16 07:58 97.9 67 18 136/69 92 03/19/16 05:13 98.9 63 20 150/70 93 03/19/16 00:28 98.9 62 20 144/69 95 03/18/16 20:10 75 03/18/16 20:05 98.9 75 20 139/78 94 03/18/16 15:58 97.8 62 18 135/70 93 03/18/16 12:32 98.4 65 16 138/75 96 I/O 03/18/16 03/18/16 03/18/16 03/19/16 03/19/16 03/19/16 07:00 15:00 23:00 07:00 15:00 23:00 Intake Total 700 ml 938 ml Balance 700 ml 938 ml Intake IV Total 100 ml 938 ml Packed Cells 600 ml # Voids 5 Result Diagram: 03/19/16 0537 03/19/16 0537 Imaging Last Impressions Head CT 03/18/16 0000 Signed Impressions: Service Date/Time: Friday, March 18, 2016 09:29 - CONCLUSION: Normal examination for a patient of this age. Loraine Blunt MD Objective Remarks GENERAL: Well-developed well-nourished. In no acute distress. SKIN: Warm and dry. No lesions noted. HEENT: Normocephalic. Pupils equal and round. Mucous membranes pink and moist. CARDIOVASCULAR: Regular rate and rhythm. No murmur appreciated. RESPIRATORY: No accessory muscle use. Clear to auscultation. Breath sounds equal bilaterally. GASTROINTESTINAL: Abdomen soft, non-tender, nondistended. Bowel sounds x4. MUSCULOSKELETAL: No obvious deformities. No clubbing or cyanosis. No edema. NEUROLOGICAL: Awake and alert. No focal neurological deficits. Moves upper and lower extremities spontaneously. Normal speech. PSYCHIATRIC: Appropriate mood and affect; insight and judgment normal. A/P Problem List: (1) Iron deficiency ICD Code: E61.1 Status: Acute (2) Microcytic anemia ICD Code: D50.9 Status: Acute (3) Hypothyroidism ICD Code: E03.9 Status: Acute (4) Encephalopathy ICD Code: G93.40 Status: Acute (5) Acute renal insufficiency ICD Code: N28.9 Status: Acute Assessment and Plan 80 year-old female with hx type 2 diabetes mellitus, hypothyroidism, and HTN who had outpatient labwork for a yearly physical which revealed a hemoglobin of 6.1 resulting in her PCP referring her to the ER for evaluation. Microcytic Iron Deficiency Anemia: hx of rectal polyps on colonoscopy 2002. FOBT negative in ER. Hgb 6.2 upon arrival. S/p 2u pRBCs overnight. Now Hgb 7.7. Stool Hemoccult negative. Started on Protonix. Continue to monitor CBC, transfuse as needed. Consulted GI, planning for EGD/colonoscopy. Obtain reports of outpatient CT scan, consider abdominal CT scan. Also consider hematology consult VANESSA vs CKD: Cr 1.25, BUN 19, GFR 41. No previous labs to compare. Continue on IVF. Avoid nephrotoxins. Repeat BMP today shows slight improvement in the evening creatinine, stable. Severe Hypothyroidism: TSH 78, Free T4 0.20. Restarted patient's Synthroid. Recommend repeat thyroid labs in 2 weeks as an outpatient. Acute Encephalopathy: dementia vs severe anemia vs hypothyroid-related. Dementia work up initiated. Head CT images reviewed by me, unremarkable. Vit B12 , RPR, ammonia, all wnl. Thyroid function as above. Patient appears to have improved after blood transfusion and restarting levothyroxine. Diabetes Mellitus: held patient's glipizide. Monitor Accu-checks, cover with SSI. Hypoglycemia protocol. Hypertension: chronic, continue patient's lisinopril. Monitor BP, adjust antihypertensives as needed. Hypokalemia: Potassium 3.4. Magnesium within normal limits at 1.8. Replace potassium orally. DVT prophylaxis- SCDs. Chemoprophylaxis contraindicated by severe anemia Written by Alejandro Ibarra, acting as scribe for Dr. Frey on 03/19/16 at 08:44. The documentation accurately reflects the work performed [id number] by me on at 0844 Discharge Planning Follow-up results of the GI lab and outpatient records. Possible DC later today versus additional workup for anemia depending on results. Problem Qualifiers (1) Hypothyroidism: Qualified Code: E03.9 - Hypothyroidism, unspecified type Alejandro Ibarra Mar 19, 2016 08:45 Juventino Frey MD Mar 19, 2016 17:59
[2016-03-19] MEDS: SODIUM CHLORIDE 0.9% FLUSH 5 ML FLUSH FLUSH SCH ×2 (09:00→22:00)
[2016-03-19 09:53] LABS: OVALOCYTES 1+ (NORMAL); SCAN/DIFF AUTO DIFF CONFIRMED; TARGET CELLS 1+ (NORMAL)
[2016-03-19] MEDS: PANTOPRAZOLE SOD 40 MG DELAYED RELEASE TAB PO SCH (10:27)
[2016-03-19] MEDS: LISINOPRIL 20 MG TAB PO SCH (10:27)
[2016-03-19] MEDS ORDERED: MAGNESIUM CITRATE SOLN 300 ML BTL PO ONE ×2 (12:00→18:00)
[2016-03-19] MEDS ORDERED: LACTATED RINGER'S 1,000 ML BAG XX ONE (12:30)
[2016-03-19] MEDS ORDERED: PROPOFOL 200 MG/20 ML AMP IV ONE (13:30)
--- NOTE | 2016-03-19 14:19 | PD.PROCEDR ---
GI Procedure REFERRING PHYSICIAN Dr. odell PROCEDURE PERFORMED EGD with biopsy followed by colonoscopy with snare polypectomy INDICATION FOR PROCEDURE Iron deficiency anemia PROCEDURE: The procedure, risks and benefits were discussed with Ms. Day and informed consent was obtained. Anesthesia sedated her with Diprivan. She was placed in the left lateral decubitus position. EGD: The Pentax videoscope was introduced through the oropharynx and advanced to the second portion of the duodenum under direct visualization. Retroflexion was performed in the stomach. FINDINGS: Esophagus this was normal Stomach there was a large hiatal hernia otherwise gastric mucosa was unremarkable and within normal limits Duodenum this appeared to be unremarkable and within normal limits random biopsies were taken further evaluation Colonoscopy: The Pentax videoscope was introduced through the rectum and advanced to cecum where the ileocecal valve and appendiceal orifice were identified. Retroflexion was performed in the rectum. Colonic prep was good FINDINGS: Colonic withdrawal time greater than 6 minutes as the scope was slowly withdrawn colonic mucosa was carefully inspected the patient was noted to have 5 polyps all sessile some small some medium none look worrisome probable adenomatous polyps all were completely excised and retrieved for further evaluation excision was using cold snare patient was also noted to have mild to moderate diverticulosis of the sigmoid retroflexion in the rectum did reveal small size internal hemorrhoids rectal examination otherwise unremarkable ESTIMATED BLOOD LOSS: None SPECIMENS REMOVED: Duodenal and colonic COMPLICATIONS: None IMPRESSION: Large hiatal hernia Colon polyps Diverticulosis Internal hemorrhoids PLAN: Await biopsy Small bowel follow-through High-fiber diet Supportive care Monitor labs and transfuse if needed Colonoscopy in 5 years Rudy Meehan MD Mar 19, 2016 14:19
[2016-03-19] MEDS: DEXT 5%-NACL 0.45% 1000 ML INJ 1,000 ML IV SCH ×2 (17:15→22:08)
[2016-03-19] MEDS ORDERED: BISACODYL EC 5 MG TABEC PO SCH (18:00)
[2016-03-19 19:10] LABS: HEMATOCRIT 25.9 % (35.0-46.0)
[2016-03-19 19:15] LABS: REVIEW FLAG FINAL
[2016-03-20] VITALS (12 sets, daily range): BP systolic 119–158; BP diastolic 58–74; PULSE 61–72; RESP 18–20; TEMP 96.9–98.8; O2SAT 92–98
[2016-03-20] MEDS: INSULIN ASPART SUPPLEMENTAL SCALE SQ SCH ×4 (05:32→21:00)
[2016-03-20] MEDS: LEVOTHYROXINE SODIUM 100 MCG TAB PO SCH (05:32)
[2016-03-20 07:41] LABS: AUTOMATED NEUTROPHIL # 4.4 TH/MM3 (1.8-7.7); BASOPHIL # 0.2 TH/MM3 (0-0.2); BASOPHIL % 2.4 % (0.0-2.0); EOSINOPHIL # 0.2 TH/MM3 (0-0.4); EOSINOPHIL % 3.3 % (0.0-4.0); HEMATOCRIT 23.1 % (35.0-46.0); LYMPH % 19.6 % (9.0-44.0); LYMPHOCYTE # 1.2 TH/MM3 (1.0-4.8); MEAN CELL VOLUME 61.9 FL (80.0-100.0); MEAN CORPUSCULAR HGB CONC 30.7 % (32.0-36.0); MONO % 5.7 % (0.0-8.0); PLATELET COUNT 249 TH/MM3 (150-450); RED BLOOD COUNT 3.72 MIL/MM3 (4.00-5.30); WHITE BLOOD COUNT 6.3 TH/MM3 (4.0-11.0)
[2016-03-20 07:47] LABS: HEMO FLAGS AUTO DIFF
[2016-03-20 07:57] LABS: ALT (GPT) 14 U/L (10-53); ANION GAP 8 MEQ/L (5-15); AST (GOT) 18 U/L (15-37); BICARBONATE 21.8 MEQ/L (21.0-32.0); BLOOD UREA NITROGEN 8 MG/DL (7-18); CHLORIDE 113 MEQ/L (98-107); GLOMERULAR FILTRATION RATE 52 ML/MIN (>89); MAGNESIUM 1.8 MG/DL (1.5-2.5); POTASSIUM 3.6 MEQ/L (3.5-5.1); SODIUM (NA) 143 MEQ/L (136-145)
[2016-03-20 07:58] LABS: ALKALINE PHOSPHATASE 58 U/L (45-117); TOTAL BILIRUBIN ADULT 0.6 MG/DL (0.2-1.0)
[2016-03-20 08:40] LABS: PLATELET ESTIMATE SMEAR NORMAL (NORMAL); PLATELET MORPHOLOGY NORMAL (NORMAL); SCAN/DIFF AUTO DIFF CONFIRMED
[2016-03-20] MEDS: LISINOPRIL 20 MG TAB PO SCH (08:42)
[2016-03-20] MEDS: PANTOPRAZOLE SOD 40 MG DELAYED RELEASE TAB PO SCH (08:42)
[2016-03-20] MEDS: SODIUM CHLORIDE 0.9% FLUSH 5 ML FLUSH FLUSH SCH ×2 (08:42→22:09)
[2016-03-20] MEDS: IRON SUCROSE INJ 100 MG in SODIUM CHLORIDE 0.9% INJ 100 ML IV SCH (10:01)
--- NOTE | 2016-03-20 10:48 | RADRPT ---
EXAM DATE/TIME: 03/19/2016 14:38 [facility] COMPARISON: No previous studies available for comparison. INDICATIONS : Anemia. Post EDG. FLUORO TIME: 0.4 minutes IMAGE COUNT: 15 CONTRAST: Liquid E-Z Paque Barium Sulfate (60% w/v, 41% w/w) IMAGING TIME(S): 15 min, 30 min, 45 min, 1 hr, 1.5 hrs MEDICAL HISTORY : Diabetes mellitus type 2. Hypothyroidism. SURGICAL HISTORY : Hysterectomy. ENCOUNTER: Subsequent ACUITY: 2 days PAIN SCORE: 2/10 LOCATION: Abdomen. 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 Degenerative changes and scoliosis of the thoracolumbar spine are noted. The stomach is grossly unremarkable. Examination of the small bowel demonstrates normal mucosal pattern involving the jejunum and ileum. There is no evidence of mass or obstruction. No intraluminal filling defects are identified. Small bowel transit time is normal at 90 minutes. Fluoroscopy of the abdomen and terminal ileum demonstrat es no abnormality. CONCLUSION: Unremarkable small bowel. Degenerative changes and scoliosis of the thoracolumbar spi ne. Ej Avelar MD on March 20, 2016 at 10:45 Board Certified Radiologist. This report was verified electronically.
--- NOTE | 2016-03-20 11:28 | HHI.PR ---
Subjective Remarks Follow-up for symptomatic anemia. Today the patient is not oriented to place or time. She denies any chest pain, shortness breath, dizziness, lightheadedness. Objective Vitals Vital Signs Date Time Temp Pulse Resp B/P Pulse Ox O2 Delivery O2 Flow Rate FiO2 03/20/16 08:00 63 03/20/16 07:47 98.1 71 18 119/58 92 03/20/16 03:22 98.8 67 18 124/60 96 03/19/16 23:42 98.5 63 18 117/60 95 03/19/16 19:45 98.4 77 18 160/74 98 03/19/16 19:24 78 03/19/16 17:44 97.7 69 18 165/82 92 03/19/16 14:18 63 16 114/67 96 03/19/16 14:13 64 16 110/67 93 03/19/16 14:08 97.8 61 16 109/67 96 03/19/16 12:30 97.6 76 18 120/63 96 03/19/16 11:35 97.6 76 120/63 96 I/O 03/19/16 03/19/16 03/19/16 03/20/16 03/20/16 03/20/16 07:00 15:00 23:00 07:00 15:00 23:00 Intake Total 550 ml Balance 550 ml Intake IV Total 550 ml # Voids 5 Result Diagram: 03/20/16 0710 03/20/16 0720 Imaging Last Impressions Small Bowel X-Ray 03/19/16 0000 Signed Impressions: Service Date/Time: Saturday, March 19, 2016 14:38 - CONCLUSION: Unremarkable small bowel. Degenerative changes and scoliosis of the thoracolumbar spine. Ej Avelar MD Head CT 03/18/16 0000 Signed Impressions: Service Date/Time: Friday, March 18, 2016 09:29 - CONCLUSION: Normal examination for a patient of this age. Loraine Blunt MD Objective Remarks GENERAL: Well-developed well-nourished. In no acute distress. SKIN: Warm and dry. No lesions noted. HEENT: Normocephalic. Pupils equal and round. Mucous membranes pink and moist. CARDIOVASCULAR: Regular rate and rhythm. No murmur appreciated. RESPIRATORY: No accessory muscle use. Clear to auscultation. Breath sounds equal bilaterally. GASTROINTESTINAL: Abdomen soft, non-tender, nondistended. Bowel sounds x4. MUSCULOSKELETAL: No obvious deformities. No clubbing or cyanosis. No edema. NEUROLOGICAL: Awake and alert. No focal neurological deficits. Moves upper and lower extremities spontaneously. Normal speech. PSYCHIATRIC: Oriented to self. Slightly confused mood and affect; insight and judgment fair. A/P Problem List: (1) Iron deficiency ICD Code: E61.1 Status: Acute (2) Microcytic anemia ICD Code: D50.9 Status: Acute (3) Hypothyroidism ICD Code: E03.9 Status: Acute (4) Encephalopathy ICD Code: G93.40 Status: Acute (5) Acute renal insufficiency ICD Code: N28.9 Status: Acute Assessment and Plan 80 year-old female with hx type 2 diabetes mellitus, hypothyroidism, and HTN who had outpatient labwork for a yearly physical which revealed a hemoglobin of 6.1 resulting in her PCP referring her to the ER for evaluation. Microcytic Iron Deficiency Anemia: hx of rectal polyps on colonoscopy 2002. FOBT negative in ER. Hgb 6.2 upon arrival. S/p 2u pRBCs and Hgb increased to 7.7. Stool Hemoccult negative. Started on Protonix. Continue to monitor CBC, transfuse as needed. Consulted GI, performed EGD/colonoscopy 03/19, no signs of active bleeding. Small bowel series ordered, unremarkable. 03/20 hemoglobin decreased to 7.1 and patient is confused, transfuse 2 units PRBCs. Follow-up GI input. VANESSA vs CKD: Cr 1.25, BUN 19, GFR 41. No previous labs to compare. Continue on IVF. Avoid nephrotoxins. Repeat BMP shows slight improvement in the evening creatinine, stable. Severe Hypothyroidism: TSH 78, Free T4 0.20. Restarted patient's Synthroid. Recommend repeat thyroid labs in 2 weeks as an outpatient. Acute Encephalopathy: dementia vs severe anemia vs hypothyroid-related. Dementia work up initiated. Head CT images reviewed by me, unremarkable. Vit B12 , RPR, ammonia, all wnl. Thyroid function as above. Patient appeared to have improved after blood transfusion and restarting levothyroxine. 03/20 slightly more confused today, transfusion as above. PT eval. Diabetes Mellitus: held patient's glipizide. Monitor Accu-checks, cover with SSI. Hypoglycemia protocol. Hypertension: chronic, continue patient's lisinopril. Monitor BP, adjust antihypertensives as needed. Hypokalemia: Potassium 3.4, replaced orally, now 3.6. Magnesium within normal limits at 1.8. DVT prophylaxis- SCDs. Chemoprophylaxis contraindicated by severe anemia Written by Alejandro Ibarra, acting as scribe for Dr. Conley on 03/20/16 at 11:25. Discharge Planning Disposition pending clinical course. Attending Statement The documentation accurately reflects the work performed [id number] by me, Dr. Conley on 03/20/16 at 11:25. Problem Qualifiers (1) Hypothyroidism: Qualified Code: E03.9 - Hypothyroidism, unspecified type Alejandro Ibarra Mar 20, 2016 11:28 Michael Conley MD Mar 28, 2016 17:19
[2016-03-20] MEDS ORDERED: ACETAMINOPHEN 325 MG TAB PO PRN (11:30)
[2016-03-20] MEDS ORDERED: FUROSEMIDE 20 MG/2 ML VIAL IV ONE (11:30)
[2016-03-20] MEDS ORDERED: SODIUM CHLOR 0.9% 250 ML INJ 250 ML IV ONE (11:30)
[2016-03-20] MEDS ORDERED: diphenhydrAMINE HCL 25 MG CAP PO PRN (11:30)
[2016-03-20] MEDS: ACETAMINOPHEN 325 MG TAB PO PRN (12:43)
[2016-03-20] MEDS: DEXT 5%-NACL 0.45% 1000 ML INJ 1,000 ML IV SCH ×2 (13:44→22:10)
--- NOTE | 2016-03-20 13:58 | HHI.GIFU ---
Subjective Remarks Resting in bed. No obvious active bleeding. No abdominal pain. No active bleeding. (Gisella Willis) Objective Vitals I&O Vital Signs Date Time Temp Pulse Resp B/P Pulse Ox O2 Delivery O2 Flow Rate FiO2 03/20/16 11:51 98.4 72 18 141/69 97 03/20/16 08:00 63 03/20/16 07:47 98.1 71 18 119/58 92 03/20/16 03:22 98.8 67 18 124/60 96 03/19/16 23:42 98.5 63 18 117/60 95 03/19/16 19:45 98.4 77 18 160/74 98 03/19/16 19:24 78 03/19/16 17:44 97.7 69 18 165/82 92 03/19/16 14:18 63 16 114/67 96 03/19/16 14:13 64 16 110/67 93 03/19/16 14:08 97.8 61 16 109/67 96 I/O 03/19/16 03/19/16 03/19/16 03/20/16 03/20/16 03/20/16 07:00 15:00 23:00 07:00 15:00 23:00 Intake Total 550 ml Balance 550 ml Intake IV Total 550 ml # Voids 5 Laboratory Laboratory Tests Test 03/19/16 03/20/16 03/20/16 03/20/16 18:42 07:10 07:20 12:42 Hemoglobin 7.9 7.1 Hematocrit 25.9 23.1 White Blood Count 6.3 Red Blood Count 3.72 Mean Corpuscular Volume 61.9 Mean Corpuscular Hemoglobin 19.0 Mean Corpuscular Hemoglobin 30.7 Concent Red Cell Distribution Width 22.0 Platelet Count 249 Mean Platelet Volume 9.4 Neutrophils (%) (Auto) 69.0 Lymphocytes (%) (Auto) 19.6 Monocytes (%) (Auto) 5.7 Eosinophils (%) (Auto) 3.3 Basophils (%) (Auto) 2.4 Neutrophils # (Auto) 4.4 Lymphocytes # (Auto) 1.2 Monocytes # (Auto) 0.4 Eosinophils # (Auto) 0.2 Basophils # (Auto) 0.2 CBC Comment AUTO DIFF Differential Comment AUTO DIFF CONFIRMED Platelet Estimate NORMAL Platelet Morphology Comment NORMAL Sodium Level 143 Potassium Level 3.6 Chloride Level 113 Carbon Dioxide Level 21.8 Anion Gap 8 Blood Urea Nitrogen 8 Creatinine 1.03 Estimat Glomerular Filtration 52 Rate Random Glucose 131 Calcium Level 8.1 Magnesium Level 1.8 Total Bilirubin 0.6 Aspartate Amino Transf 18 (AST/SGOT) Alanine Aminotransferase 14 (ALT/SGPT) Alkaline Phosphatase 58 Total Protein 6.1 Albumin 3.0 Blood Type O POSITIVE Antibody Screen NEGATIVE Crossmatch Leukocyte-Reduced Red Blood Cells Blood Bank Comment Imaging Last Impressions Small Bowel X-Ray 03/19/16 0000 Signed Impressions: Service Date/Time: Saturday, March 19, 2016 14:38 - CONCLUSION: Unremarkable small bowel. Degenerative changes and scoliosis of the thoracolumbar spine. Ej Avelar MD Head CT 03/18/16 0000 Signed Impressions: Service Date/Time: Friday, March 18, 2016 09:29 - CONCLUSION: Normal examination for a patient of this age. Loraine Blunt MD Physical Exam HEENT: Normocephalic; atraumatic; no jaundice. CHEST: CTA CARDIAC: RRR ABDOMEN: Soft, nondistended, nontender; no hepatosplenomegaly; bowel sounds are present in all four quadrants. EXTREMITIES: BLE edema. SKIN: Normal; no rash; no jaundice. SCRUBBER SYSTEM ATTENDANT: No focal deficits; alert and oriented times three (Gisella Willis) Assessment and Plan Plan ASSESSMENT: - EM. HH on admission 6.2/21.3. Iron level 6, TIBC 503, Iron saturation 1.2% . S/P 2 units of PRBC, H/H is now 7.1/23.1. No GI symptoms. EGD/. Colonoscopy (03/19/16)-----> large hiatal hernia, colon polyps, diverticulosis, internal hemorrhoids. SBFT (03/19/16)----> Unremarkable small bowel. Degenerative changes and scoliosis of the thoracolumbar spine. S/P 2 units PRBC. No obvious active bleeding. Iron transfusion. - VANESSA. Creat 1.03. - Hypothryroidism with elevated TSH, low free T4. TSH 78.6. PLAN: - SUE - PPI - Iron transfusion - Consider capsule endoscopy as outpatient - Further recommendations to follow based on results of above - Pt seen and examined by Dr. Meehan and myself and this note is written on his behalf (Gisella Willis) Physician Comments Patient was seen and examined Agree with above Continue with current supportive care Monitor labs No evidence of any active GI bleed at this point and her hemoglobin is stable Plan for outpatient capsule endoscopy Patient follow-up with GI post discharge We will sign off (Rudy Meehan MD) Gisella Willis Mar 20, 2016 13:58 Rudy Meehan MD Mar 20, 2016 18:12
[2016-03-20 15:02] LABS: HEMATOCRIT 23.6 % (35.0-46.0)
[2016-03-20 15:12] LABS: REVIEW FLAG FINAL
[2016-03-21] VITALS: BP 142/68; PULSE 54; RESP 20; TEMP 96.9; O2SAT 97
[2016-03-21 02:05] LABS: HEMATOCRIT 28.4 % (35.0-46.0)
[2016-03-21 02:08] LABS: REVIEW FLAG FINAL
[2016-03-21 04:00] VITALS: BP 130/62; PULSE 57; RESP 18; TEMP 97.4; O2SAT 95
[2016-03-21 05:00] LABS: AUTOMATED NEUTROPHIL # 3.3 TH/MM3 (1.8-7.7); BASOPHIL # 0.1 TH/MM3 (0-0.2); BASOPHIL % 2.5 % (0.0-2.0); EOSINOPHIL # 0.2 TH/MM3 (0-0.4); EOSINOPHIL % 3.2 % (0.0-4.0); LYMPH % 23.7 % (9.0-44.0); LYMPHOCYTE # 1.2 TH/MM3 (1.0-4.8); MEAN CELL VOLUME 65.9 FL (80.0-100.0); MEAN CORPUSCULAR HGB CONC 33.3 % (32.0-36.0); MONO % 6.5 % (0.0-8.0); NEUT % 64.1 % (16.0-70.0); PLATELET COUNT 230 TH/MM3 (150-450); RED BLOOD COUNT 3.94 MIL/MM3 (4.00-5.30); RED CELL DISTRIBUTION WIDTH 27.2 % (11.6-17.2); WHITE BLOOD COUNT 5.2 TH/MM3 (4.0-11.0)
[2016-03-21 05:12] LABS: HEMO FLAGS AUTO DIFF
[2016-03-21 05:20] LABS: BICARBONATE 22.7 MEQ/L (21.0-32.0); POTASSIUM 3.2 MEQ/L (3.5-5.1)
[2016-03-21] MEDS: LEVOTHYROXINE SODIUM 100 MCG TAB PO SCH (06:13)
[2016-03-21] MEDS: INSULIN ASPART SUPPLEMENTAL SCALE SQ SCH ×2 (06:13→11:00)
[2016-03-21 07:34] LABS: KERATOCYTES OCC (NORMAL); OVALOCYTES 1+ (NORMAL); PLATELET ESTIMATE SMEAR NORMAL (NORMAL); PLATELET MORPHOLOGY NORMAL (NORMAL); SCAN/DIFF AUTO DIFF CONFIRMED; TEARDROP RBCS 1+ (NORMAL)
[2016-03-21 08:00] VITALS: BP 155/74; PULSE 58; RESP 19; TEMP 97.7; O2SAT 94
[2016-03-21] MEDS: DEXT 5%-NACL 0.45% 1000 ML INJ 1,000 ML IV SCH (10:16)
[2016-03-21] MEDS: IRON SUCROSE INJ 100 MG in SODIUM CHLORIDE 0.9% INJ 100 ML IV SCH (10:26)
[2016-03-21] MEDS: LISINOPRIL 20 MG TAB PO SCH (10:26)
[2016-03-21] MEDS: PANTOPRAZOLE SOD 40 MG DELAYED RELEASE TAB PO SCH (10:26)
[2016-03-21] MEDS: SODIUM CHLORIDE 0.9% FLUSH 5 ML FLUSH FLUSH SCH (10:27)
[2016-03-21] MEDS ORDERED: POTASSIUM CHLORIDE 25 MEQ EFFERVESCENT TAB PO ONE (11:15)
[2016-03-21 12:00] VITALS: BP 142/75; PULSE 60; RESP 20; TEMP 97.5; O2SAT 94
[2016-03-21 16:00] VITALS: BP 171/80; PULSE 68; RESP 18; TEMP 96.8; O2SAT 96
--- NOTE | 2016-03-21 16:21 | HHI.FF ---
Face to Face Verification Diagnosis: (1) Hypothyroidism (2) Iron deficiency (3) Generalized weakness Physical Therapy Order: Evaluate and Treat I have seen patient Marlyn Day on 03/21/16. My clinical findings support the need for the requested home health care services because: Deconditioned w/ increased weakness I certify that my clinical findings support that this patient is homebound because: Unsafe to leave home unassisted Michael Conley MD Mar 21, 2016 16:21
[2016-03-21] MEDS ORDERED: MISC-274 (16:32)
[2016-03-21] MEDS ORDERED: MAGNESIUM SULFATE 1 GM PREMIX 100 ML IV ONE (17:00)
--- NOTE | 2016-03-28 17:27 | HHI.DS ---
Discharge Summary Admission Date Mar 17, 2016 at 19:51 Discharge Date: Mar 21, 2016 Admitting Diagnosis Iron deficiency anemia, hypothyroidism (1) Iron deficiency ICD Code: E61.1 (2) Microcytic anemia ICD Code: D50.9 (3) Hypothyroidism ICD Code: E03.9 (4) Encephalopathy ICD Code: G93.40 (5) Acute renal insufficiency ICD Code: N28.9 Procedures Colonoscopy. Tubular adenoma. Please see report. Brief History - From Admission Mrs. Day is a 80 year-old female with a past medical history type 2 diabetes mellitus, hypothyroidism, and hypertension who had outpatient labwork for a yearly physical which revealed a hemoglobin of 6.1 resulting in her PCP referring her to the ER for evaluation. Rectal exam in ER negative for occult blood. In ER blood work revealed hemoglobin 6.2 and hematocrit 21.3. BP mildly elevated at 154/73, otherwise VSS. TSH elevated at 78.6. Free T4 low at 0.20. Acute renal insufficiency noted with BUN - 19, Creatinine - 1.25, and eGFR 41. Iron deficiency noted with Iron saturation 1.2%, TIBC elevated at 503, and iron level low at 6. The patient is seen in the CDU. She states that she is here because "I didn't take my medicine" and states it medicine for her thyroid that she's not been taking. She is educated about her low blood count and need for blood transfusion and then shortly thereafter again states that she is here because she didn't take her thyroid medicine. Her medical history is recalled with some accuracy. She states that she went out of town about 3 months ago and stopped her levothyroxine. She reports that she takes ibuprofen once a day for pain. She denies any history of taking blood thinners. She denies history of COPD, asthma, heart problems such as CHF, heart rhythm problems, DVT, PE, CVA, seizure, liver or kidney dysfunction, or cancer. She denies any bright red blood in stool, tarry stool, shortness of breath, dizziness, hematuria, hemoptysis. She reports having a colonoscopy within the last 10 years but is unable to tell us the name of her fitter/welder. She had a screening colonoscopy performed by Dr. Schaefer in 2002. . . Imaging Last Impressions Small Bowel X-Ray 03/19/16 0000 Signed Impressions: Service Date/Time: Saturday, March 19, 2016 14:38 - CONCLUSION: Unremarkable small bowel. Degenerative changes and scoliosis of the thoracolumbar spine. Ej Avelar MD Head CT 03/18/16 0000 Signed Impressions: Service Date/Time: Friday, March 18, 2016 09:29 - CONCLUSION: Normal examination for a patient of this age. Loraine Blunt MD PE at Discharge GENERAL: Well-developed well-nourished. In no acute distress. AAOx3 SKIN: Warm and dry. No lesions noted. HEENT: Normocephalic. Pupils equal and round. Mucous membranes pink and moist. CARDIOVASCULAR: Regular rate and rhythm. No murmur appreciated. RESPIRATORY: No accessory muscle use. Clear to auscultation. Breath sounds equal bilaterally. GASTROINTESTINAL: Abdomen soft, non-tender, nondistended. Bowel sounds x4. MUSCULOSKELETAL: No obvious deformities. No clubbing or cyanosis. No edema. NEUROLOGICAL: Awake and alert. No focal neurological deficits. Moves upper and lower extremities spontaneously. Normal speech. PSYCHIATRIC: Oriented to self. Slightly confused mood and affect; insight and judgment fair. Pt update on day of discharge patient says she is feeling well. alert and oriented. Would like to go home. Denies any pain.no further bleeding. Hospital Course 80 year-old female with hx type 2 diabetes mellitus, hypothyroidism, and HTN who had outpatient labwork for a yearly physical which revealed a hemoglobin of 6.1 resulting in her PCP referring her to the ER for evaluation. She received 2 units of RBCs, with improvement of hemoglobin to 8.9, trending down to 8.7 at discharge. Gastroenterology was consulted, and patient did undergo anoscopy with colon polyps, EGD with hiatal hernia, no ulcers or signs of active bleeding. Gastroenterology recommends small bowel follow-through as outpatient. Patient received iron transfusion IV, however will off on by mouth iron supplementation due to pending small bowel capsule endoscopy. For problem-based summary for most recent progress note, please see below. Microcytic Iron Deficiency Anemia: hx of rectal polyps on colonoscopy 2002. FOBT negative in ER. Hgb 6.2 upon arrival. S/p 2u pRBCs and Hgb increased to 7.7. Stool Hemoccult negative. Started on Protonix. Continue to monitor CBC, transfuse as needed. Consulted GI, performed EGD/colonoscopy 03/19, no signs of active bleeding. Small bowel series ordered, unremarkable. 03/20 hemoglobin decreased to 7.1 and patient is confused, transfuse 2 units PRBCs. Follow-up GI input. VANESSA vs CKD: Cr 1.25, BUN 19, GFR 41. No previous labs to compare. Continue on IVF. Avoid nephrotoxins. Repeat BMP shows slight improvement in the evening creatinine, stable. Severe Hypothyroidism: TSH 78, Free T4 0.20. Restarted patient's Synthroid. Recommend repeat thyroid labs in 2 weeks as an outpatient. Acute Encephalopathy: dementia vs severe anemia vs hypothyroid-related. Dementia work up initiated. Head CT images reviewed by me, unremarkable. Vit B12 , RPR, ammonia, all wnl. Thyroid function as above. Patient appeared to have improved after blood transfusion and restarting levothyroxine. 03/20 slightly more confused today, transfusion as above. PT eval. Diabetes Mellitus: held patient's glipizide. Monitor Accu-checks, cover with SSI. Hypoglycemia protocol. Hypertension: chronic, continue patient's lisinopril. Monitor BP, adjust antihypertensives as needed. Hypokalemia: Potassium 3.4, replaced orally, now 3.6. Magnesium within normal limits at 1.8. DVT prophylaxis- SCDs. Chemoprophylaxis contraindicated by severe anemia Pt Condition on Discharge: Good Discharge Disposition: Disch w/ Home Health Serv Discharge Time: <= 30 minutes Discharge Instructions DIET: Follow Instructions for: Heart Healthy Diet, Diabetic Diet Activities you can perform: Regular-No Restrictions Follow up Referrals: Gastroenterology - 1 Week with Rudy Meehan MD you will need capsule endoscopy PCP Follow-up - 1 Week with Abiola Norwood MD New Orders: BASIC METABOLIC PROF - 3-5 Days CBC WITH DIFF - 3-5 Days New Medications: Folding Walker/5" Wheels (Folding Walker/5" Wheels) 1 Mis Mis 1 EA .ROUTE DIRECTED #1 EA Continued Medications: Glipizide (Glipizide) 5 Mg Tab 5 MG PO DAILY Take 30 minutes before a meal Blood Sugar Management #30 Ref 0 TAB Levothyroxine (Levothyroxine) 100 Mcg Tab 100 MCG PO DAILY Thyroid #30 Ref 0 TAB Lisinopril (Lisinopril) 40 Mg Tab 40 MG PO DAILY Blood Pressure Management #30 Ref 0 TAB Michael Conley MD Mar 28, 2016 17:27
== END 2016-03-21 18:13 | disposition home health service (06) | DRG 811 ==
LOC: NEPA 17:05 → NEDA 19:42 → OBSVTOIN 19:51 → NEPHCDU 21:06 → N07B 03-20 18:57
PROVIDERS: ADMIT Internal Medicine; ATTEND Internal Medicine
PROC: 30233N1 Transfusion of Nonautologous Red Blood Cells into Peripheral Vein, Percutaneous Approach (ICD-10-PCS; 2016-03-17)
PROC: 0DBN8ZX Excision of Sigmoid Colon, Via Natural or Artificial Opening Endoscopic, Diagnostic (ICD-10-PCS; 2016-03-19)
PROC: 0DBP8ZX Excision of Rectum, Via Natural or Artificial Opening Endoscopic, Diagnostic (ICD-10-PCS; 2016-03-19)
PROC: 0DB98ZX Excision of Duodenum, Via Natural or Artificial Opening Endoscopic, Diagnostic (ICD-10-PCS; principal; 2016-03-19 13:40)
PROC: 0DBM8ZX Excision of Descending Colon, Via Natural or Artificial Opening Endoscopic, Diagnostic (ICD-10-PCS; 2016-03-19 13:40)
DX: D50.9 Iron deficiency anemia, unspecified (principal); G93.40 Encephalopathy, unspecified; E03.9 Hypothyroidism, unspecified; E11.9 Type 2 diabetes mellitus without complications; Z79.84 Long term (current) use of oral hypoglycemic drugs; N28.9 Disorder of kidney and ureter, unspecified; I10 Essential (primary) hypertension; K44.9 Diaphragmatic hernia without obstruction or gangrene; K64.8 Other hemorrhoids; K57.30 Diverticulosis of large intestine without perforation or abscess without bleeding; K63.5 Polyp of colon; E87.6 Hypokalemia; M81.0 Age-related osteoporosis without current pathological fracture; Z86.010 Personal history of colon polyps
CPT/HCPCS: 36430; 70450; 74250; 80048; 80053; 82140; 82607; 82728; 82948; 83540; 83550; 83615; 83735; 84439; 84443; 85014; 85018; 85025; 85044; 86592; 86850; 86900; 86901; 86902; 86920; 86922; 88305; J1200; J1756; J1815; J1940; J7050; J7120; P9016